=== PATIENT | female | born 1950 | race Caucasian/White ===

== ENCOUNTER 2018-06-13 03:59 | Emergency (ER) | payer MEDICARE, OTHER ==
[~2018-06-13] VITALS: Ht 165.1 cm; Wt 68.0 kg
[2018-06-13] MEDS ORDERED: LEVOTHYROXINE75 MCG PO (04:12)
[2018-06-13] MEDS ORDERED: CRESTOR20 MG PO (04:12)
[2018-06-13] MEDS ORDERED: NORCO 5-325 TA1 EACH PO (04:36)
[2018-06-13] MEDS ORDERED: CEPHALEXIN500 MG PO (04:36)
== END 2018-06-13 05:00 | disposition home or self-care (01) ==
LOC: ED 03:59
DX: J02.9 Acute pharyngitis, unspecified (principal); E03.9 Hypothyroidism, unspecified; E78.5 Hyperlipidemia, unspecified; Z88.0 Allergy status to penicillin; Z79.899 Other long term (current) drug therapy
CPT/HCPCS: 87081; 87880; 99283